=== PATIENT | female | born 1965 | race Caucasian/White ===

== ENCOUNTER 2020-08-01 14:26 | Emergency (ER) | payer OTHER ==
[~2020-08-01] VITALS: Ht 154.9 cm; Wt 80.0 kg
[2020-08-01] MEDS ORDERED: METF-961 PO (15:23)
[2020-08-01] MEDS ORDERED: HYDROCODONE/ACETAMINOPHEN 5-325 MG TABLET PO ONE (16:45)
[2020-08-01] MEDS ORDERED: KETOROLAC TROMETHAMINE 60 MG/2 ML VIAL IM ONE (16:45)
[2020-08-01 18:30] VITALS: BP 118/73
== END 2020-08-01 19:03 | disposition home or self-care (01) ==
LOC: EMS 14:28
DX: S83.91XA Sprain of unspecified site of right knee, initial encounter (principal); S63.501A Unspecified sprain of right wrist, initial encounter; S39.012A Strain of muscle, fascia and tendon of lower back, initial encounter; W01.0XXA Fall on same level from slipping, tripping and stumbling without subsequent striking against object, initial encounter; Y93.89 Activity, other specified; Y92.488 Other paved roadways as the place of occurrence of the external cause; Y99.8 Other external cause status
CPT/HCPCS: 72100; 73110; 73130; 73562; 96372; 99284; J1885